=== PATIENT | female | born 1955 | race Caucasian/White ===

== ENCOUNTER 2020-05-13 07:25 | Outpatient (REF) | payer OTHER, SELFPAY ==
--- NOTE | 2020-05-13 07:29 | MM_ITS ---
EXAMINATION: MM SCREENING DIGITAL BREAST TOMOSYNTHESIS, BILATERAL CLINICAL INFORMATION: Screening. Asymptomatic. The lifetime risk of breast cancer based on the Tyrer-Cuzick Model is 25%. Additional annual screening with breast MRI may be of benefit in women with a score of 20% or greater. COMPARISON: Mammography: May 02, 2018 and studies dating back to April 16, 2014 TECHNIQUE: Digital breast tomosynthesis is performed in both the craniocaudal and mediolateral oblique views along with computer-aided detection (CAD). Synthesized 2D images are generated from the tomosynthesis. FINDINGS: The breasts are extremely dense, which lowers the sensitivity of mammography (ACR BI-RADS breast composition Category d). There are no significant masses, abnormal calcifications, or other abnormalities. MM/MM tomosynthesis screening BI IMPRESSION: There are no significant changes from prior study. ASSESSMENT: BI-RADS 1: Negative RECOMMENDATION: Routine annual mammography screening. This patient's information was entered into a reminder system with a target due date for their next mammogram.
== END 2020-05-13 07:26 | disposition home or self-care (01) ==
LOC: HO.MAMMO 07:25
PROVIDERS: PCP Internal Medicine; Visit Provider Internal Medicine
DX: Z12.31 Encounter for screening mammogram for malignant neoplasm of breast (principal)
CPT/HCPCS: 77063; 77067

== ENCOUNTER 2020-07-08 09:50 | Outpatient (REF) | payer OTHER, SELFPAY ==
[2020-07-08 11:19] LABS: Hematocrit 44.6 % (37-47); Hemoglobin 14.6 g/dl (12.0-16.0); Mean Corpuscular HGB Conc 32.7 g/dl (31.0-35.0); Mean Corpuscular Hemoglobin 29.6 pg (27.0-33.0); Mean Corpuscular Volume 90.5 fL (80-98); Mean Platelet Volume 11.1 fL (9.4-12.3); Platelet Count 231 X10*3/uL (160-400); Red Blood Count 4.93 X10*6/uL (4.20-5.50); Red Cell Distribution Width 11.9 % (11.0-16.0); White Blood Count 5.1 X10*3/uL (4.8-10.8)
[2020-07-08 11:38] LABS: Glucose Urine UA NEG (NEG); Leukocyte Esterase Urine NEG (NEG); Nitrite Urine NEG (NEG); Specific Gravity - Urine 1.025 (1.005-1.025); Urine Blood NEG (NEG); Urine Ketones NEG (NEG); Urine Protein NEG (NEG-TRACE)
[2020-07-08 11:41] LABS: Appearance Urine CLEAR; Color Urine YELLOW
[2020-07-08 11:52] LABS: RBC Urine 0 /HPF (0); WBC Urine 0 /HPF (0-4)
[2020-07-08 11:54] LABS: Alanine Aminotransferase 11 U/L (0-31); Albumin Level 4.6 g/dL (3.5-5.0); Alkaline Phosphatase 76 U/L (39-117); Anion Gap 14 (12-20); Aspartate Amino Transferase 20 U/L (5-31); Bilirubin Total 0.6 mg/dL (0.0-1.0); Blood Urea Nitrogen 22 mg/dL (9-16); Calcium 9.2 mg/dL (8.4-10.2); Carbon Dioxide 28 mmol/L (22-29); Chloride 107 mmol/L (96-108); Cholesterol 226 mg/dL; Estimated Glomerular Filt Rate > 60; Glucose Fasting 84 mg/dL (60-99); HDL Cholesterol 63 mg/dL; LDL Cholesterol Calculated 146 mg/dl; Potassium 3.9 mmol/L (3.3-5.1); Sodium 145 mmol/L (135-145); Triglycerides 88 mg/dL
[2020-07-08 11:55] LABS: TSH reflex Free T4 0.78 uIU/mL (0.32-4.0)
== END 2020-07-08 09:51 | disposition home or self-care (01) ==
LOC: HO.HMGCLDS 09:50
PROVIDERS: PCP Internal Medicine; Visit Provider Internal Medicine
DX: Z00.00 Encounter for general adult medical examination without abnormal findings (principal); E78.5 Hyperlipidemia, unspecified
CPT/HCPCS: 36415; 80053; 80061; 81001; 84443; 85027

== ENCOUNTER → 2020-12-22 07:45 | Outpatient (BNVA) | payer OTHER, SELFPAY | PROVIDERS: PCP Internal Medicine; Visit Provider Internal Medicine Gastroenterology ==

== ENCOUNTER 2020-12-30 11:52 | Outpatient (REF) | payer OTHER, SELFPAY | END 2020-12-30 11:53 | disposition home or self-care (01) | LOC: HO.LNP 11:52 | PROVIDERS: Visit Provider Hospitalist | DX: R30.0 Dysuria (principal) | CPT/HCPCS: 87086; 87088; 87186 ==

== ENCOUNTER 2021-01-31 10:29 | Day surgery (SDC) | payer OTHER, SELFPAY ==
[2021-01-25 15:32] VITALS: BMI 20.3
--- NOTE | 2021-01-30 11:53 | P.CONAN_ITS ---
Documented by User: Edith Kolb NP 01/30/21 11:53 HPI - Anesthesia Eval Consult details Narrative: 65yo F for Colonoscopy PMFSH Active Problems Active Problems: All Active Problems (Updated 01/25/21 @ 15:35 by Mindy Lovell RN) Annual physical exam (Acute) Dysuria (Acute) Hyperlipidemia (Acute) Past Medical History Medical History COVID-19 vaccine series completed Hyperlipidemia Osteoporosis PONV (postoperative nausea and vomiting) Family History Family History Father No problems noted. Mother No problems noted. Surgical History Surgical History H/O breast surgery H/O colonoscopy H/O: hysterectomy Social History Social History Are you a primary emergency care tech to a significant other at home: No Do you presently have visiting nurse or other home services: No Alcohol intake: never Patient Tobacco Use Status: Never used Tobacco Use of substances other than those prescribed or required for medical reasons: No Have you been hit, kicked, punched, or otherwise hurt by someone within the past year? If so, by whom?: No Are you DNR?: No Advance Directives: No Advance Directives Information Provided: No Advance Directives on File: No Recently lost weight without trying: No Eating poorly because of decreased appetite: No Nutrition Risks: No Nutritional Risk Patient : No Meds Allergies Allergy/AdvReac Type Severity Reaction Status Date / Time banana Allergy Mild mild Verified 01/25/21 15:22 coconut Allergy tongue Verified 01/25/21 15:31 tingling morphine, nsaids Allergy Unknown Nausea and Uncoded 01/25/21 15:31 Vomiting sensitive to pain meds Allergy Unknown Nausea and Uncoded 01/25/21 15:31 Vomiting NARCOTICS AdvReac Intermediate SEVERE N/V Uncoded 01/25/21 15:22 FOR DAYS Home Medications Medication Instructions Recorded Confirmed Last Taken Type multivitamin 1 tab PO DAILY 01/25/21 01/25/21 Unknown History omega 8-fli-dsk-fish oil 1,000 mg 1 cap PO DAILY 10/01/31/21 01/17/21 History (120 mg-180 mg) capsule (Fish Oil) Exam Exam Date and Time: January 30, 2021 1153 Height,Weight and Vital Signs: Height 5 ft 8 in Weight 60.781 kg Assessment and Plan Assessment Anesthesia Assessment: Chart Reviewed Documented by User: Mariana Oshea MD 01/31/21 11:38 PMFSH Past Medical History Medical History COVID-19 vaccine series completed Hyperlipidemia Osteoporosis PONV (postoperative nausea and vomiting) Family History Family History Father No problems noted. Mother No problems noted. Surgical History Surgical History H/O breast surgery H/O colonoscopy H/O: hysterectomy Social History Social History Are you a primary emergency care tech to a significant other at home: No Do you presently have visiting nurse or other home services: No Alcohol intake: never Patient Tobacco Use Status: Never used Tobacco Use of substances other than those prescribed or required for medical reasons: No Have you been hit, kicked, punched, or otherwise hurt by someone within the past year? If so, by whom?: No Are you DNR?: No Advance Directives: No Advance Directives Information Provided: No Advance Directives on File: No Recently lost weight without trying: No Eating poorly because of decreased appetite: No Nutrition Risks: No Nutritional Risk Patient : No Meds Allergies Allergy/AdvReac Type Severity Reaction Status Date / Time banana Allergy Mild mild Verified 01/25/21 15:22 coconut Allergy tongue Verified 01/25/21 15:31 tingling morphine, nsaids Allergy Unknown Nausea and Uncoded 01/25/21 15:31 Vomiting sensitive to pain meds Allergy Unknown Nausea and Uncoded 01/25/21 15:31 Vomiting NARCOTICS AdvReac Intermediate SEVERE N/V Uncoded 01/25/21 15:22 FOR DAYS Home Medications Medication Instructions Recorded Confirmed Last Taken Type multivitamin 1 tab PO DAILY 01/25/21 01/25/21 Unknown History omega 5-aon-gxl-fish oil 1,000 mg 1 cap PO DAILY 01/25/21 01/31/21 01/17/21 History (120 mg-180 mg) capsule (Fish Oil) Exam Airway Mallampati Class: I TM Dist: >3cm Neck ROM: Full
--- NOTE | 2021-01-31 10:52 | MHC.SHP ---
Pre-Procedural Eval Section A Date of Service: 01/31/21 The patient is an INPATIENT: No The History & Physical has been completed within 30 days and I have reviewed it.: No Section B Chief Complaint: Screening Details of Present Illness: screening Relevant Family History (Specify if Yes): No Relevant Social History: None Present Medications: see Short Stay Collaborative assessment Medical History: Significant History (Annual physical exam Hyperlipidemia Osteoporosis) History of Previous Operations: Relevant previous surgery/procedure and date(s) (H/O breast surgery H/O colonoscopy H/O: hysterectomy) Allergies: Allergies Allergy/AdvReac Type Severity Reaction Status Date / Time banana Allergy Mild mild Verified 01/25/21 15:22 coconut Allergy tongue Verified 01/25/21 15:31 tingling morphine, nsaids Allergy Unknown Nausea and Uncoded 01/25/21 15:31 Vomiting sensitive to pain meds Allergy Unknown Nausea and Uncoded 01/25/21 15:31 Vomiting NARCOTICS AdvReac Intermediate SEVERE N/V Uncoded 01/25/21 15:22 FOR DAYS Review of Systems Sugical H&P ROS: Negative: Constitution, Cardiovascular, Respiratory and Gastrointestinal Exam Surgical H&P Exam: Normal: Heart, Normal: Lungs, Normal: Extremities and Normal: Abdomen Plan Diagnosis/Plan: Unchanged I have reviewed the history and physical and performed a pertinent physical examination on my patient. No changes have occurred unless specified.
[2021-01-31 11:04] VITALS: BP 133/92; PULSE 96; RESP 16; TEMP 36.4; O2SAT 97
[2021-01-31] MEDS: Lactated Ringers 1,000 ML 100 ML IVCONT (11:08)
--- NOTE | 2021-01-31 12:32 | PM.OP ---
Brief Operative Note Date of Service: 01/31/21 Pre-op diagnosis: Colon cancer screening Post-op diagnosis: other (Colon polyps, diverticulosis, hemorrhoids) Procedure: COLONOSCOPY TILL CECUM WITH BIOPSIES AND SNARE POLYPECTOMY Consent: Indications for the procedure and potential complications of bleeding, perforation, reaction to medications and missed diagnosis were discussed with the patient and informed consent was obtained. Instrument: Olympus PCF H 190 L variable stiffness pediatric colonoscope Monitoring: Vital signs and clinical assessment, intermittent blood pressure monitoring, continuous EKG monitoring, Pulse oximetry and Carbon Dioxide monitoring were done throughout the procedure. Colon withdrawl time was 23 minutes. Procedure: The patient was placed in the left lateral decubitis position and pre-procedure medications were administered. After a digital rectal examination of the ano-rectum, the video colonoscope was inserted into the rectum and advanced through the colon to the cecum. The colonoscope was slowly withdrawn in a retrograde panoramic fashion and the colon mucosa was carefully examined including a retroflexed view of the rectum. Findings and interventions are described below. Procedure Difficulty: Colon was tortuous and there were sharp turns in the sigmoid colon and hepatic flexures which were navigated with difficulty. Minimal air insuufflation was used during intubation. Findings: Terminal Ileum: Not evaluated Cecum: Normal Ascending Colon: A 15 mm sessile polyp removed with a hot snare. Minor bleeding noted polypectomy site which was treated with cautery using the snare tip. Transverse Colon: An 8-10 mm sessile polyp - removed with a hot snare - no specimen sent since tissue was charred. Descending Colon: Moderate diverticulosis Sigmoid Colon: An 8-10 mm diminutive appearing polyp which was biopsied. Severe diverticulosis with luminal narrowing Rectum: Normal Ano-rectum: Small internal hemorrhoids Colon preparation: Good Impression and Post Procedure Diagnosis: Colonoscopy Findings: Three medium sized polyps removed Moderate diverticulosis seen in the left colon Small hemorrhoids on retroflexed exam. Plan: Await pathology results Patient has an appointment on 02/13/21 in the [facility] with Rosina Neri M.D.. Repeat Colonoscopy interval based on path results - in 3 years if polyps are adenomatous and 10 years if polyps are hyperplastic. Above findings were reviewed with the patient and colon polyps and diverticulosis handouts were given in the discharge area Surgeon: Rosina Neri MD Anesthesia: MAC (Anel Orellana CRNA) Was an Commercial Light Fixture Assembler used for this Procedure?: Yes Commercial Light Fixture Assembler: Lizz Parker Estimated blood loss (mL): 0 Pathology: other (A. ASCENDING COLON POLYP B. SIGMOID COLON POLYP BX) Condition: stable Disposition: PACU
[2021-01-31 12:35] VITALS: BP 118/71; PULSE 80; RESP 16; TEMP 36.1; O2SAT 98
--- NOTE | 2021-01-31 12:38 | W.PM.OPN ---
Operative Note Operative Note Date of Service: 01/31/21 Narrative: Pre-op diagnosis:?Colon cancer screening Post-op diagnosis:?other (Colon polyps, diverticulosis, hemorrhoids) Procedure:? COLONOSCOPY TILL CECUM WITH BIOPSIES AND SNARE POLYPECTOMY Consent: Indications for the procedure and potential complications of bleeding, perforation, reaction to medications and missed diagnosis were discussed with the patient and informed consent was obtained. Instrument: Olympus PCF H 190 L variable stiffness pediatric colonoscope Monitoring: Vital signs and clinical assessment, intermittent blood pressure monitoring, continuous EKG monitoring, Pulse oximetry and Carbon Dioxide monitoring were done throughout the procedure. Colon withdrawl time was 23 minutes. Procedure: The patient was placed in the left lateral decubitis position and pre-procedure medications were administered. After a digital rectal examination of the ano-rectum, the video colonoscope was inserted into the rectum and advanced through the colon to the cecum. The colonoscope was slowly withdrawn in a retrograde panoramic fashion and the colon mucosa was carefully examined including a retroflexed view of the rectum. Findings and interventions are described below. Procedure Difficulty:? Colon was tortuous and there were sharp turns in the sigmoid colon and hepatic flexures which were navigated with difficulty.? Minimal air insuufflation was used during intubation. Findings: Terminal Ileum: Not evaluated Cecum:? Normal Ascending Colon:? A 15 mm sessile polyp removed with a hot snare.? Minor bleeding noted polypectomy site which was treated with cautery using the snare tip. Transverse Colon:? An 8-10 mm sessile polyp - removed with a hot snare - no specimen sent since tissue was charred. Descending Colon:? Moderate diverticulosis Sigmoid Colon:? An 8-10 mm diminutive appearing polyp which was biopsied. ? Severe diverticulosis with luminal narrowing Rectum:? Normal Ano-rectum:? Small internal hemorrhoids Colon preparation:? Good? Impression and Post Procedure Diagnosis: Colonoscopy Findings: Three medium sized polyps removed Moderate diverticulosis seen in the left colon Small hemorrhoids on retroflexed exam. Plan: Await pathology results Patient has an appointment on 02/13/21 in the GI Clinic with? Rosina Neri M.D.. Repeat Colonoscopy interval based on path results - in 3 years if polyps are adenomatous and 10 years if polyps are hyperplastic. Above findings were reviewed with the patient and colon polyps and diverticulosis handouts were given in the discharge area Surgeon:?Rosina Neri MD Anesthesia:?MAC (Anel Orellana CRNA) Was an Guide Escort used for this Procedure?:?Yes Guide Escort:?Lizz Parker Estimated blood loss (mL):?0 Pathology:?other (A. ASCENDING COLON POLYP? B. SIGMOID COLON POLYP BX) Condition:?stable Disposition:?PACU
[2021-01-31 12:50] VITALS: BP 109/71; PULSE 79; RESP 16; TEMP 36.1; O2SAT 96
== END 2021-01-31 13:15 | disposition home or self-care (01) ==
PROVIDERS: PCP Internal Medicine; Visit Provider Internal Medicine Gastroenterology
PROC: 0DJD8ZZ Inspection of Lower Intestinal Tract, Via Natural or Artificial Opening Endoscopic (ICD-10-PCS; CPT 45378; principal; 2021-01-31 11:30)
DX: Z12.11 Encounter for screening for malignant neoplasm of colon (principal); K63.5 Polyp of colon; K57.30 Diverticulosis of large intestine without perforation or abscess without bleeding; K64.8 Other hemorrhoids; M81.0 Age-related osteoporosis without current pathological fracture; E78.5 Hyperlipidemia, unspecified; Z88.8 Allergy status to other drugs, medicaments and biological substances
CPT/HCPCS: 45385; 45380; 88305

== ENCOUNTER 2021-05-08 06:42 | Day surgery (SDC) | payer OTHER, SELFPAY ==
[2021-04-17 09:27] VITALS: BMI 19.8
--- NOTE | 2021-05-04 08:27 | MHC.SHP ---
Pre-Procedural Eval Section A Date of Service: 05/04/21 The patient is an INPATIENT: No Changes since office visit: No Cold of Flu in the past 2 weeks, No New Medical Problems, No Changes in Medication and No Patient answered all questions The History & Physical has been completed within 30 days and I have reviewed it.: Yes Section B Chief Complaint: cataract Allergies: Allergies Allergy/AdvReac Type Severity Reaction Status Date / Time banana Allergy Intermediate tongue Verified 04/17/21 09:23 tingling coconut Allergy Intermediate tongue Verified 04/17/21 09:23 tingling morphine AdvReac Intermediate Nausea and Verified 04/17/21 09:23 Vomiting NSAIDS (Non-Steroidal AdvReac Intermediate Nausea and Verified 04/17/21 09:23 Anti-Inflamma Vomiting NARCOTICS AdvReac Intermediate SEVERE N/V Uncoded 04/12/21 12:08 FOR DAYS sensitive to pain meds AdvReac Intermediate Nausea and Uncoded 04/17/21 09:23 Vomiting Plan Diagnosis/Plan: Unchanged I have reviewed the history and physical and performed a pertinent physical examination on my patient. No changes have occurred unless specified.
--- NOTE | 2021-05-05 08:52 | HO.ANESPROP2 ---
Documented by User: Edith Kolb NP 05/05/21 08:53 HPI - Anesthesia Eval Consult details Narrative: 65yo F for Left Cataract Extraction IOL Insertion No prev cataract on record PCP cleared PMFSH Active Problems Active Problems: All Active Problems (Updated 04/12/21 @ 13:14 by Xochitl Oliva MD) Cataract (Acute) Annual physical exam (Acute) Dysuria (Acute) Hyperlipidemia (Acute) Past Medical History Medical History (Updated 04/12/21 @ 13:14 by Xochitl Oliva MD) Cataract COVID-19 vaccine series completed Hyperlipidemia Osteoporosis PONV (postoperative nausea and vomiting) Family History Family History Father No problems noted. Mother No problems noted. Surgical History Surgical History H/O breast surgery H/O colonoscopy H/O: hysterectomy Social History Social History Housing: House Are you a primary insurance healthcare representative to a significant other at home: No Do you presently have visiting nurse or other home services: No Alcohol intake: never Patient Tobacco Use Status: Never used Tobacco e-Cigarette/Vaping Use: Never Used Are you DNR?: No Advance Directives: No Advance Directives Information Provided: Yes Advance Directives on File: No Current occupational status: employed Meds Allergies Allergy/AdvReac Type Severity Reaction Status Date / Time banana Allergy Intermediate tongue Verified 04/17/21 09:23 tingling coconut Allergy Intermediate tongue Verified 04/17/21 09:23 tingling morphine AdvReac Intermediate Nausea and Verified 04/17/21 09:23 Vomiting NSAIDS (Non-Steroidal AdvReac Intermediate Nausea and Verified 04/17/21 09:23 Anti-Inflamma Vomiting NARCOTICS AdvReac Intermediate SEVERE N/V Uncoded 04/12/21 12:08 FOR DAYS sensitive to pain meds AdvReac Intermediate Nausea and Uncoded 04/17/21 09:23 Vomiting Home Medications Medication Instructions Recorded Confirmed Last Taken Type multivitamin 1 tab PO DAILY 01/25/21 04/17/21 Unknown History omega 3-qyo-xmw-fish oil 1,000 mg 1 cap PO DAILY 01/25/21 04/17/2121 History (120 mg-180 mg) capsule (Fish Oil) calcium carbonate 600 mg calcium 600 mg PO DAILY 04/17/21 04/17/21 Unknown History (1,500 mg) tablet (Calcium) Exam Exam Date and Time: May 05, 2021 0852 Height,Weight and Vital Signs: Height 5 ft 8 in Weight 58.967 kg Assessment and Plan Assessment Anesthesia Assessment: Chart Reviewed Documented by User: Javier Solomon MD 05/08/21 07:34 [facility] Past Medical History Medical History (Updated 04/12/21 @ 13:14 by Xochitl Oliva MD) Cataract COVID-19 vaccine series completed Hyperlipidemia Osteoporosis PONV (postoperative nausea and vomiting) Family History Family History Father No problems noted. Mother No problems noted. Family history of problems with anesthesia: No Surgical History Surgical History H/O breast surgery H/O colonoscopy H/O: hysterectomy History of Problems with Anesthesia: No Social History Social History Housing: House Are you a primary insurance healthcare representative to a significant other at home: No Do you presently have visiting nurse or other home services: No Alcohol intake: never Patient Tobacco Use Status: Never used Tobacco e-Cigarette/Vaping Use: Never Used Are you DNR?: No Advance Directives: No Advance Directives Information Provided: Yes Advance Directives on File: No Current occupational status: employed Meds Allergies Allergy/AdvReac Type Severity Reaction Status Date / Time banana Allergy Intermediate tongue Verified 04/17/21 09:23 tingling coconut Allergy Intermediate tongue Verified 04/17/21 09:23 tingling morphine AdvReac Intermediate Nausea and Verified 04/17/21 09:23 Vomiting NSAIDS (Non-Steroidal AdvReac Intermediate Nausea and Verified 04/17/21 09:23 Anti-Inflamma Vomiting NARCOTICS AdvReac Intermediate SEVERE N/V Uncoded 04/12/21 12:08 FOR DAYS sensitive to pain meds AdvReac Intermediate Nausea and Uncoded 04/17/21 09:23 Vomiting Home Medications Medication Instructions Recorded Confirmed Last Taken Type multivitamin 1 tab PO DAILY 01/25/21 04/17/21 Unknown History omega 7-hgt-nii-fish oil 1,000 mg 1 cap PO DAILY 01/25/21 04/17/21 01/17/21 History (120 mg-180 mg) capsule (Fish Oil) calcium carbonate 600 mg calcium 600 mg PO DAILY 04/17/21 04/17/21 Unknown History (1,500 mg) tablet (Calcium) Exam Airway Mallampati Class: II TM Dist: >3cm Neck ROM: Full Loose/Missing/Broken Teeth: No Heart: [id number] Lungs: cta b/l Assessment and Plan Assessment Anesthesia Assessment: Anesthesia Plan Discussed Final Anesthetic Review Family History of Problems with Anesthesia: No History of Problems with Anesthesia: No NPO: Yes ASA Class: II Final Preanesthetic Review: No Changes in Pt Med Stat, Meds/Allgs Chart Reviewed, Consent Obtained/Reviewed and Anes Risks/Benef Reviewed Patient Risk: Low Procedure Risk: Low Assessment/Block/Sedation in SS: Assess/Block/Sedation-SS Anesthetic Plan Anesthetic Plan: MAC: and Agree w/ Assess. and Plan Disposition: Standard PACU
[2021-05-08 06:59] VITALS: BP 128/75; PULSE 89; RESP 16; TEMP 37; O2SAT 97
[2021-05-08] MEDS: Tetracaine HCl/PF 0.5% Oph Sol 4 ML DROPS 1 DROP EYE-LEFT (07:25)
[2021-05-08] MEDS: Tropicamide 1 % Ophth Sol 3 ML BTL 1 DROP EYE-LEFT ×3 (07:26→07:32)
[2021-05-08] MEDS: Phenylephrine HCL 2.5% Oph SoL 2 ML BOTTLE 1 DROP EYE-LEFT ×3 (07:28→07:34)
--- NOTE | 2021-05-08 08:19 | HO.PNOPHT ---
Ophthalmology Procedure Procedure Date of Service: 05/08/21 Ophthalmology Viscoelastic: Ivy Manning Dual Pack Pro Ophthalmology Lenses: NATACHA [id number] (14) Procedure Notes: PREOPERATIVE DIAGNOSIS: Decreased visual acuity left eye secondary to cataract POSTOPERATIVE DIAGNOSIS: Same PROCEDURE: Left cataract extraction with intraocular lens insertion SURGEON: Manas Cardona M.D. ANESTHESIA: Topical/MAC ESTIMATED BLOOD LOSS: None COMPLICATIONS: None After obtaining informed consent, the patient was brought to the operation room suite and placed in the supine position. After adequate sedation per anesthesia, topical drops of Tetracaine were given to the left eye. The eye was then prepped and draped in the usual sterile fashion. The operating room microscope was then positioned over the operative eye and a lid speculum placed. A paracentesis was created. Viscoelastic was then instilled into the anterior chamber. A three plane incision was then created temporally, utilizing a 2.85 mm keratome. Capsulotomy forceps were then utilized to create a circular tear capsulotomy. Hydrodissection and hydrodelineation were carried out until adequate mobilization of the nucleus occurred. Phacoemulsification was then utilized to remove the dense central nucleus followed by removal of the cortical material utilizing the automated aspiration irrigation unit. Viscoat elastic was instilled into the posterior capsular bag followed by placement of a posterior chamber intraocular lens but the lens did not center. A posterior rent was identified so the PCIOL was repostioned into the sulcus with haptic capture. The residual Viscoat elastic was then removed utilizing the automated IA machine. The wound was check and found to be watertight. The patient tolerated the procedure well and the lid speculum was removed. Intracameral injection of Vigamox 0.1 mL followed by a subtenon injection of Kenalog-40 0.2 mL were administered. The patient will be seen in the a.m.
[2021-05-08 08:47] VITALS: BP 110/72; PULSE 72; RESP 16; TEMP 36.5; O2SAT 99
== END 2021-05-08 08:57 | disposition home or self-care (01) ==
PROVIDERS: PCP Internal Medicine; Visit Provider Ophthalmology
PROC: (CPT 66985; principal; 2021-05-08 09:20)
DX: H25.12 Age-related nuclear cataract, left eye (principal); H52.4 Presbyopia; Z83.511 Family history of glaucoma; H52.203 Unspecified astigmatism, bilateral; E78.5 Hyperlipidemia, unspecified; M81.0 Age-related osteoporosis without current pathological fracture; R30.0 Dysuria; Z88.8 Allergy status to other drugs, medicaments and biological substances
CPT/HCPCS: 66984; J2250; J2405; J3300; V2632

== ENCOUNTER 2021-05-15 06:27 | Day surgery (SDC) | payer OTHER, SELFPAY ==
[2021-04-17 09:15] VITALS: BMI 19.8
[2021-04-17 09:25] VITALS: BMI 19.8
--- NOTE | 2021-04-20 09:31 | MHC.SHP ---
Pre-Procedural Eval Section A Date of Service: 04/20/21 The patient is an INPATIENT: No Changes since office visit: No Cold of Flu in the past 2 weeks, No New Medical Problems, No Changes in Medication and No Patient answered all questions The History & Physical has been completed within 30 days and I have reviewed it.: Yes Section B Chief Complaint: cataract Allergies: Allergies Allergy/AdvReac Type Severity Reaction Status Date / Time banana Allergy Intermediate tongue Verified 04/17/21 09:23 tingling coconut Allergy Intermediate tongue Verified 04/17/21 09:23 tingling morphine AdvReac Intermediate Nausea and Verified 04/17/21 09:23 Vomiting NSAIDS (Non-Steroidal AdvReac Intermediate Nausea and Verified 04/17/21 09:23 Anti-Inflamma Vomiting NARCOTICS AdvReac Intermediate SEVERE N/V Uncoded 04/12/21 12:08 FOR DAYS sensitive to pain meds AdvReac Intermediate Nausea and Uncoded 04/17/21 09:23 Vomiting Plan Diagnosis/Plan: Unchanged I have reviewed the history and physical and performed a pertinent physical examination on my patient. No changes have occurred unless specified.
--- NOTE | 2021-05-11 08:38 | MHC.SHP ---
Pre-Procedural Eval Section A Date of Service: 05/11/21 The patient is an INPATIENT: No Changes since office visit: No Cold of Flu in the past 2 weeks, No New Medical Problems, No Changes in Medication and No Patient answered all questions The History & Physical has been completed within 30 days and I have reviewed it.: Yes Section B Chief Complaint: cataract Allergies: Allergies Allergy/AdvReac Type Severity Reaction Status Date / Time banana Allergy Intermediate tongue Verified 04/17/21 09:23 tingling coconut Allergy Intermediate tongue Verified 04/17/21 09:23 tingling morphine AdvReac Intermediate Nausea and Verified 04/17/21 09:23 Vomiting NSAIDS (Non-Steroidal AdvReac Intermediate Nausea and Verified 04/17/21 09:23 Anti-Inflamma Vomiting NARCOTICS AdvReac Intermediate SEVERE N/V Uncoded 04/12/21 12:08 FOR DAYS sensitive to pain meds AdvReac Intermediate Nausea and Uncoded 04/17/21 09:23 Vomiting Plan Diagnosis/Plan: Unchanged I have reviewed the history and physical and performed a pertinent physical examination on my patient. No changes have occurred unless specified.
--- NOTE | 2021-05-11 13:00 | P.CONAN_ITS ---
Documented by User: Edith Kolb NP 05/11/21 13:01 HPI - Anesthesia Eval Consult details Narrative: 65yo F for Right Cataract Extraction IOL Insertion PCP cleared Left eye 05/08/21 with MAC: Midaz 2, Zofran 4 *Very sensitive to opioids* PMFSH Active Problems Active Problems: All Active Problems (Updated 04/12/21 @ 13:14 by Xochitl Oliva MD) Cataract (Acute) Annual physical exam (Acute) Dysuria (Acute) Hyperlipidemia (Acute) Past Medical History Medical History (Updated 04/12/21 @ 13:14 by Xochitl Oliva MD) Cataract COVID-19 vaccine series completed Hyperlipidemia Osteoporosis PONV (postoperative nausea and vomiting) Family History Family History Father No problems noted. Mother No problems noted. Family history of problems with anesthesia: No Surgical History Surgical History H/O breast surgery H/O colonoscopy H/O: hysterectomy History of Problems with Anesthesia: No Social History Social History Housing: House Are you a primary career services representative to a significant other at home: No Do you presently have visiting nurse or other home services: No Alcohol intake: never Patient Tobacco Use Status: Never used Tobacco e-Cigarette/Vaping Use: Never Used Use of substances other than those prescribed or required for medical reasons: No Are you DNR?: No Advance Directives: No Advance Directives Information Provided: Yes Advance Directives on File: No Current occupational status: employed Meds Allergies Allergy/AdvReac Type Severity Reaction Status Date / Time banana Allergy Intermediate tongue Verified 05/15/21 06:40 tingling coconut Allergy Intermediate tongue Verified 05/15/21 06:40 tingling morphine AdvReac Intermediate Nausea and Verified 05/15/21 06:40 Vomiting NSAIDS AdvReac Intermediate Nausea and Verified 05/15/21 06:40 (Non-Steroidal Anti-Inflamma Vomiting NARCOTICS AdvReac Intermediate SEVERE N/V Uncoded 04/12/21 12:08 FOR DAYS sensitive to pain AdvReac Intermediate Nausea and Uncoded 04/17/21 09:23 meds Vomiting Home Medications Medication Instructions Recorded Confirmed Last Taken Type multivitamin 1 tab PO DAILY 01/25/21 04/17/21 Unknown History omega 1 cap PO DAILY 01/25/21 04/17/21 01/17/21 History 5-yks-iyr-fish oil 1,000 mg (120 mg-180 mg) capsule (Fish Oil) calcium carbonate 600 mg PO DAILY 04/17/21 04/17/21 Unknown History 600 mg calcium (1,500 mg) tablet (Calcium) Exam Exam Date and Time: May 11, 2021 1300 Height,Weight and Vital Signs: Height 5 ft 8 in Weight 58.967 kg Assessment and Plan Assessment Anesthesia Assessment: Chart Reviewed Final Anesthetic Review Family History of Problems with Anesthesia: No History of Problems with Anesthesia: No Documented by User: Mariana Oshea MD 05/15/21 08:45 [facility] Past Medical History Medical History (Updated 04/12/21 @ 13:14 by Xochitl Oliva MD) Cataract COVID-19 vaccine series completed Hyperlipidemia Osteoporosis PONV (postoperative nausea and vomiting) Family History Family History Father No problems noted. Mother No problems noted. Surgical History Surgical History H/O breast surgery H/O colonoscopy H/O: hysterectomy Social History Social History Housing: House Are you a primary career services representative to a significant other at home: No Do you presently have visiting nurse or other home services: No Alcohol intake: never Patient Tobacco Use Status: Never used Tobacco e-Cigarette/Vaping Use: Never Used Use of substances other than those prescribed or required for medical reasons: No Are you DNR?: No Advance Directives: No Advance Directives Information Provided: Yes Advance Directives on File: No Current occupational status: employed Meds Allergies Allergy/AdvReac Type Severity Reaction Status Date / Time banana Allergy Intermediate tongue Verified 05/15/21 06:40 tingling coconut Allergy Intermediate tongue Verified 05/15/21 06:40 tingling morphine AdvReac Intermediate Nausea and Verified 05/15/21 06:40 Vomiting NSAIDS AdvReac Intermediate Nausea and Verified 05/15/21 06:40 (Non-Steroidal Anti-Inflamma Vomiting NARCOTICS AdvReac Intermediate SEVERE N/V Uncoded 04/12/21 12:08 FOR DAYS sensitive to pain AdvReac Intermediate Nausea and Uncoded 04/17/21 09:23 meds Vomiting Home Medications Medication Instructions Recorded Confirmed Last Taken Type multivitamin 1 tab PO DAILY 01/25/21 04/17/21 Unknown History omega 1 cap PO DAILY 01/25/21 04/17/21 01/17/21 History 8-uaw-ppw-fish oil 1,000 mg (120 mg-180 mg) capsule (Fish Oil) calcium carbonate 600 mg PO DAILY 04/17/21 04/17/21 Unknown History 600 mg calcium (1,500 mg) tablet (Calcium) Exam Airway Mallampati Class: II TM Dist: >3cm Neck ROM: Full Assessment and Plan Assessment Anesthesia Assessment: Anesthesia Plan Discussed Final Anesthetic Review NPO: Yes ASA Class: II Final Preanesthetic Review: No Changes in Pt Med Stat, Meds/Allgs Chart Reviewed, Consent Obtained/Reviewed and Anes Risks/Benef Reviewed Patient Risk: Low Procedure Risk: Low Anesthetic Plan Anesthetic Plan: MAC: Disposition: Standard PACU
--- NOTE | 2021-05-12 11:04 | MHC.SHP ---
Pre-Procedural Eval Section A Date of Service: 05/24/21 Section B Chief Complaint: cataract Details of Present Illness: difficulty driving at night d/t vision changes Relevant Family History (Specify if Yes): No Relevant Social History: None Present Medications: see Short Stay Collaborative assessment Medical History: Significant History (See Anesthesia Preop Consult) History of Previous Operations: Relevant previous surgery/procedure and date(s) (Left eye 05/08/21 with MAC: Midaz 2, Zofran 4 *Very sensitive to opioids*) Allergies: Allergies Allergy/AdvReac Type Severity Reaction Status Date / Time banana Allergy Intermediate tongue Verified 04/17/21 09:23 tingling coconut Allergy Intermediate tongue Verified 04/17/21 09:23 tingling morphine AdvReac Intermediate Nausea and Verified 04/17/21 09:23 Vomiting NSAIDS (Non-Steroidal AdvReac Intermediate Nausea and Verified 04/17/21 09:23 Anti-Inflamma Vomiting NARCOTICS AdvReac Intermediate SEVERE N/V Uncoded 04/12/21 12:08 FOR DAYS sensitive to pain meds AdvReac Intermediate Nausea and Uncoded 04/17/21 09:23 Vomiting Plan I have reviewed the history and physical and performed a pertinent physical examination on my patient. No changes have occurred unless specified.
[2021-05-15 06:42] VITALS: BP 114/78; PULSE 81; RESP 16; TEMP 37; O2SAT 97
[2021-05-15] MEDS: Lactated Ringers 500 ML 50 ML IV (06:54)
[2021-05-15] MEDS: Phenylephrine HCL 2.5% Oph SoL 2 ML BOTTLE 1 DROP EYE-RIGHT ×3 (06:54→06:55)
[2021-05-15] MEDS: Tetracaine HCl/PF 0.5% Oph Sol 4 ML DROPS 1 DROP EYE-RIGHT (06:54)
[2021-05-15] MEDS: Tropicamide 1 % Ophth Sol 3 ML BTL 1 DROP EYE-RIGHT ×3 (06:54→06:55)
--- NOTE | 2021-05-15 08:56 | HO.PNOPHT ---
Ophthalmology Procedure Procedure Date of Service: 05/15/21 Ophthalmology Viscoelastic: Healkayden Pinat Dual Pack Pro Ophthalmology Lenses: TECNIS [id number] (14.5) Procedure Notes: PREOPERATIVE DIAGNOSIS: Decreased visual acuity right eye secondary to cataract POSTOPERATIVE DIAGNOSIS: Same PROCEDURE: Right cataract extraction with intraocular lens insertion SURGEON: Manas Cardona M.D. ANESTHESIA: Topical/MAC ESTIMATED BLOOD LOSS: None COMPLICATIONS: None After obtaining informed consent, the patient was brought to the operating room suite and placed in the supine position. After adequate sedation per anesthesia, topical drops of Tetracaine were given to the right eye. The eye was then prepped and draped in the usual sterile fashion. The operating room microscope was then positioned over the operative eye and a lid speculum placed. A paracentesis was created. Viscoelastic was then instilled into the anterior chamber. A three plane incision was then created temporally, utilizing a 2.85 mm keratome. Capsulotomy forceps were then utilized to create a circular tear capsulotomy. Hydrodissection and hydrodelineation were carried out until adequate mobilization of the nucleus occurred. Phacoemulsification was then utilized to remove the dense central nucleus followed by removal of the cortical material utilizing the automated aspiration irrigation unit. Viscoelastic was instilled into the posterior capsular bag followed by placement of a posterior chamber intraocular lens without difficulty. The residual Viscoelastic was then removed utilizing the automated IA machine. The wound was checked and found to be watertight. The patient tolerated the procedure well and the lid speculum was removed. Intracameral injection of Vigamox 0.1 mL followed by a subtenon injection of Kenalog-40 0.2 mL were administered. The patient will be seen in the a.m.
[2021-05-15 09:22] VITALS: BP 124/81; PULSE 75; RESP 16; TEMP 36.6; O2SAT 98
== END 2021-05-15 09:30 | disposition home or self-care (01) ==
PROVIDERS: PCP Internal Medicine; Visit Provider Ophthalmology
PROC: (CPT 66985; principal; 2021-05-15 09:00)
DX: H25.11 Age-related nuclear cataract, right eye (principal); Z83.511 Family history of glaucoma; H52.4 Presbyopia; H52.13 Myopia, bilateral; H52.203 Unspecified astigmatism, bilateral; M81.0 Age-related osteoporosis without current pathological fracture; E78.5 Hyperlipidemia, unspecified; Z88.8 Allergy status to other drugs, medicaments and biological substances
CPT/HCPCS: 66984; J1100; J2250; J2405; J3010; J3300; V2632

== ENCOUNTER 2021-05-24 07:17 | Outpatient (REF) | payer OTHER, SELFPAY ==
--- NOTE | ~2021-05-24 | MM_ITS ---
EXAMINATION: MM SCREENING DIGITAL BREAST TOMOSYNTHESIS, BILATERAL CLINICAL INFORMATION: Screening. Asymptomatic. Prior outside bilateral excisional biopsy early 1999, right benign, left atypia. The lifetime risk of breast cancer based on the Tyrer-Cuzick Model is 25%. COMPARISON: Mammography: 05/13/2020, 05/08/2019, 05/02/2018, 04/26/2017, outside mammography 04/27/2016 ([facility], [place]). TECHNIQUE: Digital breast tomosynthesis is performed in both the craniocaudal and mediolateral oblique views along with computer-aided detection (CAD). Synthesized 2D images are generated from the tomosynthesis. FINDINGS: The breasts are heterogeneously dense, which may obscure small masses (ACR BI-RADS breast composition Category c). There are no significant masses, abnormal calcifications, or other abnormalities. Parenchymal pattern is similar to prior studies. There is no developing density or architectural abnormality. The axilla and skin contours are unremarkable. No significant changes. MM/MM tomosynthesis screening BI IMPRESSION: No significant changes from prior exams. ASSESSMENT: BI-RADS 1: Negative RECOMMENDATION: 1. Routine annual mammography screening. 2. The lifetime risk of breast cancer based on the Tyrer-Cuzick Model is 25%. Additional annual adjunct screening with breast MRI may be of benefit in women with a risk score of 20% or greater. This patient's information was entered into a reminder system with a target due date for their next mammogram.
== END 2021-05-24 07:18 | disposition home or self-care (01) ==
LOC: HO.MAMMO 07:17
PROVIDERS: PCP Internal Medicine; Visit Provider Internal Medicine
DX: Z12.31 Encounter for screening mammogram for malignant neoplasm of breast (principal)
CPT/HCPCS: 77063; 77067

== ENCOUNTER 2021-10-10 11:57 | Outpatient (REF) | payer OTHER, SELFPAY ==
[2021-10-10 12:24] LABS: Appearance Urine HAZY; Color Urine YELLOW; Glucose Urine UA NEG (NEG); Leukocyte Esterase Urine 3+ (NEG); Nitrite Urine NEG (NEG); Specific Gravity - Urine <= 1.005 (1.005-1.025); UACC Culture Trigger YES; Urine Blood 3+ (NEG); Urine Ketones NEG (NEG); Urine Protein NEG (NEG-TRACE)
[2021-10-10 12:42] LABS: WBC Urine 30-49 /HPF (0-4)
[2021-10-10 12:43] LABS: Bacteria Urine 2+ /LPF
== END 2021-10-10 11:58 | disposition home or self-care (01) ==
LOC: HO.LNP 11:57
PROVIDERS: Visit Provider Physician Assistant
DX: N39.0 Urinary tract infection, site not specified (principal)
CPT/HCPCS: 81001; 87086; 87088; 87186

== ENCOUNTER 2021-10-27 16:34 | Outpatient (REF) | payer OTHER, SELFPAY | END 2021-10-27 16:35 | disposition home or self-care (01) | LOC: HO.LNP 16:34 | PROVIDERS: Visit Provider Nurse Practitioner Family | DX: N39.0 Urinary tract infection, site not specified (principal); R35.0 Frequency of micturition; R30.0 Dysuria | CPT/HCPCS: 87086; 87088; 87186 ==

== ENCOUNTER 2022-05-04 17:49 | Outpatient (REF) | payer MEDICARE, SELFPAY | END 2022-05-04 17:50 | disposition home or self-care (01) | LOC: HO.LNP 17:49 | PROVIDERS: Visit Provider Physician Assistant | DX: N39.0 Urinary tract infection, site not specified (principal); R35.0 Frequency of micturition; B96.20 Unspecified Escherichia coli [E. coli] as the cause of diseases classified elsewhere | CPT/HCPCS: 87086; 87088; 87186 ==

== ENCOUNTER 2022-06-01 07:17 | Outpatient (REF) | payer MEDICARE, SELFPAY ==
--- NOTE | ~2022-06-01 | MM_ITS ---
EXAMINATION: MM SCREENING DIGITAL BREAST TOMOSYNTHESIS, BILATERAL CLINICAL INFORMATION: Screening. Asymptomatic. Prior outside bilateral excisional biopsy early 1999, right benign, left atypia. The lifetime risk of breast cancer based on the Tyrer-Cuzick Model is 24%. COMPARISON: Mammography: 05/24/2021, 05/13/2020, 05/08/2019, 05/02/2018 TECHNIQUE: Digital breast tomosynthesis is performed in both the craniocaudal and mediolateral oblique views along with computer-aided detection (CAD). Synthesized 2D images are generated from the tomosynthesis. FINDINGS: The breasts are heterogeneously dense, which may obscure small masses (ACR BI-RADS breast composition Category c). There are no significant masses, abnormal calcifications, or other abnormalities. No architectural abnormality or developing density or significant change from prior studies. The axilla and skin contours are unremarkable. MM/MM tomosynthesis screening BI IMPRESSION: No mammographic evidence of malignancy. ASSESSMENT: BI-RADS 1: Negative RECOMMENDATION: Routine annual mammography screening. This patient's information was entered into a reminder system with a target due date for their next mammogram.
== END 2022-06-01 07:18 | disposition home or self-care (01) ==
LOC: HO.MAMMO 07:17
PROVIDERS: PCP Internal Medicine; Visit Provider Internal Medicine
DX: Z12.31 Encounter for screening mammogram for malignant neoplasm of breast (principal)
CPT/HCPCS: 77063; 77067

== ENCOUNTER → 2022-06-13 12:48 | Outpatient (BNVA) | payer MEDICARE, SELFPAY | PROVIDERS: PCP Internal Medicine; Visit Provider Nurse Practitioner Family | DX: N39.0 Urinary tract infection, site not specified (principal) | CPT/HCPCS: 51798; 99202 ==

== ENCOUNTER 2022-06-29 12:51 | Outpatient (REF) | payer MEDICARE, SELFPAY ==
--- NOTE | ~2022-06-29 | US_ITS ---
EXAMINATION: US THYROID CLINICAL INFORMATION: Uemnmk-zreoiyqaqg-atfafih diffuse (endemic) goiter. COMPARISON: Ultrasound soft tissue head/neck thyroid dated 06/06/2018. TECHNIQUE: Linear transducer grayscale and color Doppler examination with attention to the region of the thyroid. FINDINGS: SIZE: Measurements of the thyroid lobes and nodules are given in sagittal, anteroposterior and transverse dimensions respectively. Right Thyroid Lobe: 5.3 x 2.3 x 1.8 cm, volume 11.1 mL. Previously 4.7 x 1.5 x 1.7 cm, volume 6.3 mL. Parenchyma: The gland echotexture is heterogeneous. Thyroid vascularity is normal. Left Thyroid Lobe: 4.7 x 1.6 x 1.5 cm, volume 5.8 mL. Previously 4.5 x 1.6 x 1.4 cm, volume 5.3 mL. Parenchyma: The gland echotexture is homogeneous. Thyroid vascularity is normal. Isthmus: 0.26 cm in maximum AP dimension. Previously 0.3 cm. Estimated total number of nodules greater than or equal to 1 cm: 0. Order Entry Clerk nodules are described as follows: 1. Location: Right superior. Size: 0.6 x 0.4 x 0.5 cm, volume 0.06 mL. Previously: 0.6 x 0.4 x 0.5 cm, volume 0.06 mL. Nodule characteristics: Composition: Spongiform (0). Echogenicity: Anechoic (0). Shape: Not taller than wide (0). Margins: Smooth (0). Echogenic Foci: None (0). ACR TI-RADS total points: 0 ACR TI-RADS category: 1 Significant change in size (>/= 20% in 2 dimensions and minimal increase of 2 mm or 50% or greater increase in volume): None Change in features: None Change in ACR TI-RADS risk category: No change 2. Location: Right superior. Size: 0.6 x 0.4 x 0.7 cm, volume 0.08 mL. Previously: 0.9 x 0.5 x 0.7 cm, volume 0.16 mL. Nodule characteristics: Composition: Cystic(0). ACR TI-RADS total points: 0 ACR TI-RADS category: 1 Significant change in size (>/= 20% in 2 dimensions and minimal increase of 2 mm or 50% or greater increase in volume): None Change in features: None Change in ACR TI-RADS risk category: No change 3. Location: Right mid. Size: 0.6 x 0.4 x 0.6 cm, volume 0.08 mL. Previously: 0.5 x 0.3 x 0.5 cm, volume 0.04 mL. Nodule characteristics: Composition: Mixed cystic and solid (1). Echogenicity: Anechoic (0). Shape: Not taller than wide (0). Margins: Smooth (0). Echogenic Foci: Punctate echogenic foci (3). ACR TI-RADS total points: 4 ACR TI-RADS category: 4 Significant change in size (>/= 20% in 2 dimensions and minimal increase of 2 mm or 50% or greater increase in volume): None Change in features: None Change in ACR TI-RADS risk category: No change 4. Location: Right inferior. Size: 0.8 x 0.5 x 0.7 cm, volume 0.15 mL. Previously: 0.7 x 0.5 x 0.6 cm, volume 0.11 mL. Nodule characteristics: Composition: Cystic(0). ACR TI-RADS total points: 0 ACR TI-RADS category: 1 Significant change in size (>/= 20% in 2 dimensions and minimal increase of 2 mm or 50% or greater increase in volume): None Change in features: None Change in ACR TI-RADS risk category: No change 5. Location: Right inferior. Size: 0.8 x 0.45 x 0.7 cm, volume 0.13 mL. Previously: 0.6 x 0.3 x 0.6 cm, volume 0.06 mL. Nodule characteristics: Composition: Spongiform (0). Echogenicity: Anechoic (0). Shape: Not taller than wide (0). Margins: Smooth (0). Echogenic Foci: None (0). ACR TI-RADS total points: 0 ACR TI-RADS category: 1 Significant change in size (>/= 20% in 2 dimensions and minimal increase of 2 mm or 50% or greater increase in volume): None Change in features: None Change in ACR TI-RADS risk category: No change There are multiple spongiform and cystic nodules seen bilaterally. NODES: No lymphadenopathy is seen in the tissue surrounding the thyroid gland. US/US thyroid IMPRESSION: Multiple subcentimeter thyroid nodules. None of the nodules are suspicious. ACR TI-RADS RECOMMENDATION REFERENCE: Ultrasound-guided fine-needle aspiration, followup ultrasound, no further follow up. * TR1 (0 point) and TR2 (2 points): No FNA or follow up * TR3 (3 points): FNA if more than or equal to 2.5 cm in maximum dimension, followup ultrasound in 1, 3 and 5 years if 1.5 to 2.4 cm in maximum dimension. * TR4 (4-6 points): FNA if more than or equal to 1.5 cm in maximum dimension, followup ultrasound in 1, 2, 3 and 5 years if 1 to 1.4 cm in maximum dimension. * TR5 (more than or equal to 7 points): FNA if more than or equal to 1 cm in maximum dimension, followup ultrasound every year for 5 years if 0.5 to 0.9 cm in maximum dimension. * TR3, TR4 or TR5 nodules that are below the size threshold for follow up receive no follow up.
== END 2022-06-29 12:52 | disposition home or self-care (01) ==
LOC: HO.HMGCX 12:51
PROVIDERS: PCP Internal Medicine; Visit Provider Internal Medicine
DX: E01.0 Iodine-deficiency related diffuse (endemic) goiter (principal)
CPT/HCPCS: 76536

== ENCOUNTER 2022-07-06 12:49 | Outpatient (REF) | payer MEDICARE, SELFPAY ==
--- NOTE | ~2022-07-06 | US_ITS ---
EXAMINATION: US RETROPERITONEAL COMPLETE (RENAL) CLINICAL INFORMATION: Urinary tract infection, site not specified. COMPARISON: None available. TECHNIQUE: Real-time imaging of the kidneys and bladder. FINDINGS: RIGHT KIDNEY: 9.7 x 3.3 x 5.4 cm (SAG x AP x TRV). The kidney is normal in size, contour, and echogenicity. Renal cortical thickness is normal. No renal calculi or hydronephrosis. At the upper pole, a 6 mm anechoic, simple cyst is seen. This is a benign finding, for which no imaging follow-up is recommended. LEFT KIDNEY: 11.7 x 5.0 x 4.0 cm (SAG x AP x TRV). The kidney is normal in size, contour, and echogenicity. Renal cortical thickness is normal. No focal parenchymal lesions or hydronephrosis. At the lower pole, a 2 mm nonobstructing calculus is seen, with twinkle artifact. BLADDER: Well distended and normal. Bilateral ureteral jets are demonstrated. Prevoid bladder volume is 501 mL. Postvoid bladder volume is 38 mL. There is mild debris noted within the urinary bladder. US/US retroperitoneal comp IMPRESSION: 1. A 2 mm nonobstructing left renal calculus is seen. No right renal calculus is seen. No hydronephrosis is noted bilaterally. 2. A 6 mm right renal benign, simple cyst is seen, for which no imaging follow-up is recommended. 3. Mild debris is noted within the urinary bladder. Recommend correlation with patient's most recent urinalysis.
== END 2022-07-06 12:50 | disposition home or self-care (01) ==
LOC: HO.HMGCX 12:49
PROVIDERS: PCP Internal Medicine; Visit Provider Nurse Practitioner Family
DX: N39.0 Urinary tract infection, site not specified (principal)
CPT/HCPCS: 76770

== ENCOUNTER 2022-07-09 06:02 | Outpatient (REF) | payer MEDICARE, SELFPAY ==
[2022-07-09 11:27] LABS: MANUAL DIFF FLAG NO
[2022-07-09 11:36] LABS: Basophils Absolute Auto 0.1 X10*3/uL (0.0-0.2); Basophils Percent Auto 1.9 % (0-2); Eosinophils Absolute Auto 0.1 X10*3/uL (0.0-0.4); Eosinophils Percent Auto 3.1 % (0-4); Hematocrit 46.1 % (37.0-47.0); Hemoglobin 15.1 g/dl (12.0-16.0); Imm Gran Abs Auto 0.02 X10*3/uL (0.00-0.03); Imm Gran Pct Auto 0.5 % (0.0-0.4); Lymphocytes Absolute Auto 1.4 X10*3/uL (1.2-4.9); Lymphocytes Percent Auto 33.1 % (20-40); Mean Corpuscular HGB Conc 32.8 g/dl (31.0-35.0); Mean Corpuscular Volume 91.5 fL (80.0-98.0); Mean Platelet Volume 10.8 fL (9.4-12.3); Monocytes Absolute Auto 0.4 X10*3/uL (0.1-1.2); Monocytes Percent Auto 9.9 % (2-11); Neutrophils Absolute Auto 2.1 x10*3/uL (2.0-8.3); Neutrophils Percent Auto 51.5 % (45-73); Platelet Count 236 X10*3/uL (160-400); Red Blood Count 5.04 X10*6/uL (4.20-5.50); Red Cell Distribution Width 12.2 % (11.0-16.0); White Blood Count 4.1 X10*3/uL (4.8-10.8)
[2022-07-09 12:07] LABS: Alanine Aminotransferase 19 U/L (0-31); Albumin Level 4.5 g/dL (3.5-5.0); Alkaline Phosphatase 69 U/L (39-117); Anion Gap 13 (12-20); Aspartate Amino Transferase 24 U/L (5-31); Bilirubin Total 0.9 mg/dL (0.0-1.0); Blood Urea Nitrogen 18 mg/dL (9-16); Calcium 9.6 mg/dL (8.4-10.2); Carbon Dioxide 30 mmol/L (22-29); Chloride 106 mmol/L (96-108); Cholesterol 291 mg/dL; Estimated Glomerular Filt Rate > 60; Glucose Fasting 94 mg/dL (60-99); HDL Cholesterol 71 mg/dL; LDL Cholesterol Calculated 204 mg/dl; Potassium 4.6 mmol/L (3.3-5.1); Sodium 144 mmol/L (135-145); Total Protein 6.8 g/dL (6.5-8.0); Triglycerides 81 mg/dL
[2022-07-09 12:12] LABS: TSH reflex Free T4 1.62 uIU/mL (0.32-4.0); Vitamin D 25-OH Total 48.6 ng/mL (>30)
== END 2022-07-09 06:03 | disposition home or self-care (01) ==
LOC: HO.HMGCLDS 06:02
PROVIDERS: PCP Internal Medicine; Visit Provider Internal Medicine
DX: Z00.00 Encounter for general adult medical examination without abnormal findings (principal); E78.5 Hyperlipidemia, unspecified
CPT/HCPCS: 36415; 80053; 80061; 82306; 84443; 85025

== ENCOUNTER → 2022-08-17 09:18 | Outpatient (BNVA) | payer MEDICARE, SELFPAY | PROVIDERS: PCP Internal Medicine; Visit Provider Nurse Practitioner Family | DX: N39.0 Urinary tract infection, site not specified (principal) | CPT/HCPCS: 51798; 99212 ==

== ENCOUNTER 2023-03-18 13:32 | Outpatient (REF) | payer MEDICARE, SELFPAY ==
[2023-03-18 14:22] LABS: Appearance Urine Cloudy; Color Urine Yellow; Glucose Urine UA Negative (Negative); Leukocyte Esterase Urine Small (1+) (Negative); Nitrite Urine Positive (Negative); PH 5.5 (5.0-9.0); Specific Gravity - Urine 1.025 (1.005-1.025); UMIC TRIGGER UA YES; Urine Blood Large (3+) (Negative); Urine Ketones 15 mg/dL (Negative); Urine Protein 30 (1+) mg/dL (Neg-Trace)
[2023-03-18 14:29] LABS: Bacteria Urine None Seen (None Seen); Hyaline Casts Urine 0-2 /LPF (0-2); RBC Urine >20 /HPF (0-2); Squamous Epithelial Cell Urine 0-2 /HPF (0-2); WBC Urine >50 /HPF (0-5)
== END 2023-03-18 13:33 | disposition home or self-care (01) ==
LOC: HO.LAB 13:32
PROVIDERS: PCP Internal Medicine; Visit Provider Nurse Practitioner Family
DX: N39.0 Urinary tract infection, site not specified (principal)
CPT/HCPCS: 81001; 87086

== ENCOUNTER 2023-04-23 12:13 | Outpatient (REF) | payer MEDICARE, SELFPAY ==
[2023-04-23 15:53] LABS: Appearance Urine Hazy; Color Urine Other; Glucose Urine UA Negative (Negative); Leukocyte Esterase Urine Large (3+) (Negative); Nitrite Urine Negative (Negative); Specific Gravity - Urine <= 1.005 (1.005-1.025); UMIC TRIGGER UA YES; Urine Blood Large (3+) (Negative); Urine Ketones Negative (Negative); Urine Protein Trace mg/dL (Neg-Trace)
[2023-04-23 15:59] LABS: Bacteria Urine None Seen (None Seen); Hyaline Casts Urine 0-2 /LPF (0-2); RBC Urine 0-2 /HPF (0-2); Squamous Epithelial Cell Urine 0-2 /HPF (0-2); WBC Urine >50 /HPF (0-5)
== END 2023-04-23 12:14 | disposition home or self-care (01) ==
LOC: HO.LAB 12:13
PROVIDERS: PCP Internal Medicine; Visit Provider Nurse Practitioner Family
DX: N39.0 Urinary tract infection, site not specified (principal)
CPT/HCPCS: 81001; 87086

== ENCOUNTER 2023-05-10 14:11 | Outpatient (AMB) | payer MEDICARE, SELFPAY ==
--- NOTE | 2023-05-10 14:37 | MHC.OFFVIS ---
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 Accompanied by: Self / Same As Patient Allergies banana Allergy (Intermediate, Verified 05/11/23 09:26) tongue tingling coconut Allergy (Intermediate, Verified 05/11/23 09:26) tongue tingling morphine Adverse Reaction (Intermediate, Verified 05/11/23 09:26) Nausea and Vomiting NSAIDS (Non-Steroidal Anti-Inflamma Adverse Reaction (Intermediate, Verified 05/11/23 09:26) Nausea and Vomiting NARCOTICS Adverse Reaction (Intermediate, Uncoded 05/11/23 09:26) SEVERE N/V FOR DAYS sensitive to pain meds Adverse Reaction (Intermediate, Uncoded 05/11/23 09:26) Nausea and Vomiting Medication List - Last Reconciled 05/11/23 by RAMÓN Yang-GEORGE ascorbic acid (vitamin C) 1 g PO Q6H calcium carbonate (Calcium) 600 mg PO DAILY d-mannose 700 mg PO estradiol 0.01%(0.1mg/gram) vaginally daily for the first month; pea sized amount then vaginally 3 times a week; pea sized amount to urethra 3 times a week 30 days multivitamin 1 tab PO DAILY omega 6-gdp-nfh-fish oil 1,000 mg (120 mg-180 mg) (Fish Oil) 1 cap PO DAILY HPI HPI Comments History of Present Illness Details Jeanette is a pleasant 67 year old female patient of Dr. Oliva. She has a past medical history of cataracts, hyperlipidemia, and osteoporosis. She presents to the office today for recurrent urinary tract infections. Since her last office last office visit here approximately 6 months ago she has had two episodes of UTI like symptoms however upon further assessment evaluation with urine culture, cultures were negative. She reports to be drinking plenty of water daily. She denies any issues with constipation and or her bowels. Previous work up has included a retroperitoneal ultrasound noting a 2 mm nonobstructing left renal calculus is seen. No right renal calculus is seen. No hydronephrosis is noted bilaterally. A 6 mm right renal benign, simple cyst is seen, for which no imaging follow-up is recommended. Mild debris is noted within the urinary bladder. When asked she reports to be doing and feeling well. She reports compliance with vitamin-C and D mannose. She currently denies any UTI like symptoms at this time. When asked she denies urinary urgency, urinary frequency, incontinence, nocturia, hematuria, changes to urinary stream, flank pain, fever, and or chills. In office urinalysis results reviewed with the patient today. PVR 0 mL. Discussed at length potential causes for lower urinary tract symptoms patient had been experiencing. She otherwise offers no other issues or concerns at this time. [facility] Medical History Cataract COVID-19 vaccine series completed PONV (postoperative nausea and vomiting) Hyperlipidemia Osteoporosis Surgical History H/O colonoscopy H/O breast surgery H/O: hysterectomy Family History Father No problems noted. Mother No problems noted. Social History Housing: House Are you a primary rn medicare to a significant other at home: No Do you presently have visiting nurse or other home services: No Alcohol intake: never Patient Tobacco Use Status: Never used Tobacco e-Cigarette/Vaping Use: Never Used Current occupational status: employed Cognitive needs: No Hearing needs: No Vision needs: Yes Review of Systems Const All systems reviewed & are unremarkable except as noted in HPI and below Reports as per HPI Eyes Reports as per HPI and Reports no additional complaints ENT Reports no additional complaints Card Reports no additional complaints Resp Reports no additional complaints GI Reports no additional complaints Reports as per HPI Musc Reports as per HPI Neuro Reports no additional complaints Psych Reports no additional complaints Endo Reports no additional complaints Don/Lymph Reports no additional complaints Aller/Immun Reports no additional complaints Physical Exam Const General: cooperative, healthy appearing, comfortable, no acute distress, well developed, alert and awake Nutritional Appearance: average body habitus Orientation/consciousness: patient oriented x3 Limitations: no limitations HEENT Head: Yes normal to inspection, Yes normocephalic and Yes atraumatic Ears: hearing grossly normal bilaterally Eyes General: appearance normal, both eyes and all related structures Neck Neck: Yes normal visual inspection and Yes trachea midline Chest Chest palpation & inspection: normal inspection of the chest Resp Effort & Inspection: normal respiratory effort and able to speak in complete sentences Cardio Rate: regular rate GI Inspection: Yes normal to inspection General: Yes no CVA tenderness Back/Spine/Pelvis Back: no CVA tenderness Skin General skin exam: no rashes or lesions noted Neuro General: patient oriented x3 Extrem General: Yes normal to inspection Psych Appearance: grossly normal and well kempt Mental Status: mental status grossly normal Speech and movement: Normal speech and movement present and Clear speech present Affect: normal affect Attitude: cooperative Thought process: Normal thought process present Thought content: Normal thought content present Insight: Good insight present (Psych) Judgement: Good judgement present (Psych) Office Procedures Post Void Residual Post Residual Void Post Void Residual (PVR): 0 [id number]-Tqam Void Residual by ultrasound Results AMB Urinalysis, Automated UA Leukoctes 0 Cathie/uL Last Edit by [facility] on 05/10/23 14:44 UA Nitrite Negative Last Edit by [facility] on 05/10/23 14:44 UA Urobilinogen 0.2 mg/dL Last Edit by [facility] on 05/10/23 14:44 UA Protein 0 mg/dL Last Edit by [facility] on 05/10/23 14:44 UA pH 6.0 Last Edit by [facility] on 05/10/23 14:44 UA Blood 0 Simone/uL Last Edit by [facility] on 05/10/23 14:44 UA Specific [place] 1.015 Last Edit by [facility] on 05/10/23 14:44 UA Ketone Negative Last Edit by [facility], [facility] on 05/10/23 14:44 UA Bilirubin 0 mg/dL Last Edit by [facility], [facility] on 05/10/23 14:44 UA Glucose 0 mg/dL Last Edit by [facility], [facility] on 05/10/23 14:44 Results Reviewed Results Reviewed: Laboratory Last Values Urine pH (Auto) 6.0 05/10/23 14:43 Specific [place] (Auto) 1.015 05/10/23 14:43 Urine Protein (Auto) 0 mg/dL 05/10/23 14:43 Glucose (UA)(Auto) 0 mg/dL 05/10/23 14:43 Urine Ketones (Auto) Negative 05/10/23 14:43 Urine Blood (Auto) 0 Simone/uL 05/10/23 14:43 Urine Nitrite (Auto) Negative 05/10/23 14:43 Urine Bilirubin (Auto) 0 mg/dL 05/10/23 14:43 Urine Urobilinogen (Auto) 0.2 mg/dL 05/10/23 14:43 Leukocyte Esterase (Auto) 0 Cathie/uL 05/10/23 14:43 Assessment & Plan Assessment & Plan (1) Recurrent UTI: Code(s): N39.0 - Urinary tract infection, site not specified Plan In office urinalysis results reviewed with the patient today. PVR 0 mL. Patient denies any urological issues or concerns at this time. She denies any UTI like symptoms. Discussed UTI prevention with D mannose supplement, vitamin-C, increasing fluid intake, behavioral therapy with timed voiding, perineal hygiene and postcoital voiding, and management of constipation with stool softeners and increased fiber intake. Start Estrace cream as discussed and prescribed Discussed possible near future microgen if symptoms arise given patient with previous UTI like symptoms however cultures negative. Discussed possible near future in office cystoscopy if symptoms persist and/or worsen Follow-up in 3 months with PVR; or sooner with any questions, concerns, and or issues. Orders: Orders AMB Urinalysis Automated 05/10/23 R33.9 - Retention of urine, unspecified AMB Post Void Residual by ultrasound 05/10/23 R33.9 - Retention of urine, unspecified Medications: New estradiol 0.01%(0.1mg/gram) vaginally daily for the first month; pea sized amount then vaginally 3 times a week; pea sized amount to urethra 3 times a week 30 days 42.5 grams 3RF Discontinued nitrofurantoin monohyd/m-cryst 100 mg (Macrobid) must administer with a meal/food Discontinued Reason: Patient Completed Course 100 mg PO BID 14 days 28 caps 0RF Patient Instructions: The patient had an opportunity to ask questions regarding the treatment plan. All questions were answered. Physical exam, labs, and imaging were discussed and reviewed in detail. As well as risks, benefits, and discussion of treatment choices. No major barriers to understanding were identified. The patient expressed understanding and agreement with the above treatment plan. The patient was made aware they should contact our office by phone for worsening of their current condition, the appearance of new symptoms, or with any questions or concerns. Compliance is encouraged with any medications and follow up testing that is ordered. It is a privilege to be allowed the opportunity to participate in? your urological care.? Again, if you have any questions or concerns If you have any questions or concerns please do not hesitate to contact me. The office is [phone]. This note is constructed using voice recognition software. While every effort has been made to ensure accuracy senior principal architect errors may have been included. Yours sincerely, BERNADINE Yang Coding Level of Care Code Est Pt Level 4 (46344) Diagnoses Recurrent UTI N39.0 CPT Codes Post Residual Void - PVR CPT Code: 43521-Pski Void Residual by ultrasound ([id number])
== END 2023-05-10 14:59 | disposition home or self-care (01) ==
PROVIDERS: PCP Internal Medicine; Visit Provider Nurse Practitioner Family
DX: N39.0 Urinary tract infection, site not specified (principal)
CPT/HCPCS: 99214

== ENCOUNTER → 2023-05-10 14:11 | Outpatient (BNVA) | payer MEDICARE, SELFPAY | PROVIDERS: PCP Internal Medicine; Visit Provider Nurse Practitioner Family | DX: N39.0 Urinary tract infection, site not specified (principal); R33.9 Retention of urine, unspecified | CPT/HCPCS: 51798; 81003; 99212 ==

== ENCOUNTER 2023-06-14 07:11 | Outpatient (REF) | payer MEDICARE, SELFPAY ==
--- NOTE | ~2023-06-14 | MM_ITS ---
EXAMINATION: MM SCREENING DIGITAL BREAST TOMOSYNTHESIS, BILATERAL CLINICAL INFORMATION: Screening. Asymptomatic. Patient has a history of bilateral excisional biopsies. The right excisional biopsy was benign and the left biopsy showed atypical cells. These procedures to place in the remote past. COMPARISON: Mammography: This study is compared with prior exams dating back to 2019. TECHNIQUE: Digital breast tomosynthesis is performed in both the craniocaudal and mediolateral oblique views along with computer-aided detection (CAD). Synthesized 2D images are generated from the tomosynthesis. FINDINGS: The breasts are heterogeneously dense, which may obscure small masses (ACR BI-RADS breast composition Category c). There are no significant masses, abnormal calcifications, or other abnormalities. MM/MM tomosynthesis screening BI IMPRESSION: No mammographic evidence of malignancy. ASSESSMENT: BI-RADS BI-RADS 1 - Negative RECOMMENDATION: Routine annual mammography screening. 1 year F/U This examination should not preclude the clinical evaluation of a suspicious palpable abnormality. This patient's information was entered into a reminder system with a target due date for their next mammogram.
== END 2023-06-14 07:12 | disposition home or self-care (01) ==
LOC: HO.MAMMO 07:11
PROVIDERS: PCP Internal Medicine; Visit Provider Internal Medicine
DX: Z12.31 Encounter for screening mammogram for malignant neoplasm of breast (principal)
CPT/HCPCS: 77063; 77067

== ENCOUNTER → 2023-06-14 07:30 | Outpatient (BNV) | payer MEDICARE, SELFPAY | PROVIDERS: PCP Internal Medicine; Visit Provider Radiology Diagnostic Radiology | DX: Z12.31 Encounter for screening mammogram for malignant neoplasm of breast (principal) | CPT/HCPCS: 77063; 77067 ==

== ENCOUNTER 2024-06-19 10:34 | Outpatient (REF) | payer MEDICARE, SELFPAY | END 2024-06-19 10:35 | disposition home or self-care (01) | LOC: HO.MAMMO 10:34 | PROVIDERS: PCP Family Medicine; Visit Provider Internal Medicine | DX: Z12.31 Encounter for screening mammogram for malignant neoplasm of breast (principal) | CPT/HCPCS: 77063; 77067 ==

== ENCOUNTER → 2024-06-19 11:00 | Outpatient (BNV) | payer MEDICARE, SELFPAY | PROVIDERS: PCP Family Medicine; Visit Provider Internal Medicine | DX: Z12.31 Encounter for screening mammogram for malignant neoplasm of breast (principal) | CPT/HCPCS: 77063; 77067 ==

== ENCOUNTER 2024-12-07 10:12 | Outpatient (AMB) | payer MEDICARE, SELFPAY ==
--- NOTE | 2024-12-07 10:22 | A.OFFPC_ITS ---
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 Accompanied by: Self / Same As Patient Allergies banana Allergy (Intermediate, Verified 12/07/24 10:23) tongue tingling coconut Allergy (Intermediate, Verified 12/07/24 10:23) tongue tingling morphine Adverse Reaction (Intermediate, Verified 12/07/24 10:23) Nausea and Vomiting NSAIDS (Non-Steroidal Anti-Inflamma Adverse Reaction (Intermediate, Verified 12/07/24 10:23) Nausea and Vomiting NARCOTICS Adverse Reaction (Intermediate, Uncoded 12/07/24 10:23) SEVERE N/V FOR DAYS sensitive to pain meds Adverse Reaction (Intermediate, Uncoded 12/07/24 10:23) Nausea and Vomiting Medication List - Last Reconciled 12/07/24 by EDDIE Griffith ascorbic acid (vitamin C) 1 g PO Q6H calcium carbonate (Calcium 600) 600 mg PO DAILY d-mannose 700 mg PO multivitamin 1 tab PO DAILY omega 2-wky-gzl-fish oil 1,000 (120-180) mg (Fish Oil) 1 cap PO DAILY Tobacco use date assessed: 12/07/24 Fall risk assessment: No Falls in past year Last assessed Fall Risk: 12/07/24 Dental Screening Dental Screen Date: 12/07/24 Did you have a dental visit in the last 12 months?: Yes Did you have a dental problem in the last 6 months where you did not have access to dental care?: No Was dental information given to patient?: No HPI HPI Comments History of Present Illness Details 69-year-old female with history of osteo porosis, hyperlipidemia presents to the office today for management of chronic conditions and to establish care. Last PCP Osteoporosis-on alendronate, has been on for about 5 years. Taking calcium and vitamin-D. Last DEXA scan overdue HLD-not on statin Thyromegaly- euthyroid Concerns: Family concerned about early onset dementia. Dyslexia and Irlen syndrome since childhood. Has difficulty finishing a sentence. Describes a delay. Leaves rooms without them knowing. Not misplacing items or getting lost. Health maintenance: Last screening mammogram 06/2024, 1 year follow-up advised, negative for malignancy. Last screening colonoscopy 01/2021 with 10 year follow-up advised. Dr. Neri Last DEXA scan ROS: General: No fevers, malaise, unintentional weight loss HEENT: No blurred vision, diplopia. No sore throat, nasal congestion, rhinorrhea, sinus pain, ear pain Cardiovascular: No chest pain, palpitations, or leg edema Respiratory: No shortness of breath, wheezing, cough GI: No abdominal pain, nausea, vomiting, diarrhea, constipation, melena, hematochezia : No dysuria, hematuria, increased urinary frequency, decreased urinary output MSK: No myalgia, back pain Neuro: No headaches, weakness, paresthesias Skin: No rashes or lesions EXAM: Constitutional - Awake and Alert, No apparent distress Eyes - PERRL Cardiovascular - S1S2, RRR, No edema Respiratory - Normal lung expansion, Normal respiratory effort, No respiratory distress, CTA bilaterally Extremities - no calf tenderness bilaterally, no swelling Skin - Warm/Dry Neurological - Alert & oriented x3 Psychological - Appropriate affect PFSH Medical History (Updated 12/07/24 @ 10:46 by EDDIE Griffith) Irlen syndrome Breast atypical hyperplasia Cataract COVID-19 vaccine series completed PONV (postoperative nausea and vomiting) Hyperlipidemia Osteoporosis Surgical History (Updated 12/03/24 @ 16:37 by Elva Millard) H/O colonoscopy (~01/31/21) H/O breast surgery H/O: hysterectomy Family History Father No problems noted. Mother No problems noted. Social History Housing: House Are you a primary continuum of care manager to a significant other at home: No Do you presently have visiting nurse or other home services: No Alcohol intake: never Patient Tobacco Use Status: Never used Tobacco e-Cigarette/Vaping Use: Never Used service: No Current occupational status: retired Cognitive needs: No Hearing needs: No Vision needs: Yes (Rx glasses) Questionnaire PHQ-9 Over the last 2 weeks, how often have you been bothered by any of the following problems? 1. Little interest or pleasure in doing things: not at all 2. Feeling down, depressed, or hopeless: not at all 3. Trouble falling or staying asleep, or sleeping too much: not at all 4. Feeling tired or having little energy: not at all 5. Poor appetite or overeating: not at all 6. Feeling bad about yourself - or that you are a failure or have let yourself or your family down: not at all 7. Trouble concentrating on things, such as reading the newspaper or watching television: not at all 8. Moving or speaking so slowly that other people could have noticed. Or the opposite - being so fidgety or restless that you have been moving around a lot more than usual: not at all 9. Thoughts that you would be better off or of hurting yourself in some way: not at all Total score: 0 Source: Developed by Drs. Jovani Otto, Megan Yusuf, Von Aaron and colleagues, with an educational yuri from [employer]. Thrive Questionnaire Date Thrive assessed: 12/07/24 I am a: Patient What is your living situation today?: I have a steady place to live Within the past 12 months, did the food you bought not last and you didn't have the money to get more?: Never true Within the past 12 months, did you worry whether your food would run out before you got money to buy more?: Never true Do you have trouble paying for medicines?: No Do you have trouble getting transportation to medical appointments?: No Do you have trouble paying your heating and electricity bill?: No Do you have trouble taking care of your child, family member or friend?: No Do you have trouble with day-to-day activities such as bathing, preparing meals, shopping, managing finances, etc.?: No Are you currently unemployed and looking for a job?: No Are you interested in more education?: No Please select the resources that you would like help with: None THRIVE Score: 0 LEX-7 AMB Questionnaire LEX-7 Date LEX - 7 assessed: 12/07/24 Feeling nervous, anxious, or on edge: 0 = Not at all Not being able to stop or control worryin = Not at all Worrying too much about different things: 0 = Not at all Trouble relaxin = Not at all Being so restless that it is hard to sit still: 0 = Not at all Becoming easily annoyed or irritable: 0 = Not at all Feeling afraid as if something awful might happen: 0 = Not at all Total LEX-7 score (0-4 normal; 5-9 mild; 10-14 moderate; 15-21 severe): 0 Source: Developed by Drs. Jovani Otto, Megan Yusuf, Von Aaron and colleagues, with an educational yuri from [employer]. Physical exam (Primary Care) Vital Signs: Last Vital Signs Temp 99.4 F 12/07/24 10:26 Pulse 94 12/07/24 10:26 Resp 16 12/07/24 10:26 BP 134/62 12/07/24 10:26 Pulse Ox 96 12/07/24 10:26 Oxygen Delivery Method Room Air 12/07/24 10:26 BMI result Body Mass Index 19.1 Tobacco/Smoking Status: Tobacco use Status Tobacco use date assessed 12/07/24 12/07/24 10:28 Patient Tobacco Use Status Never used Tobacco 12/07/24 10:24 e-Cigarette/Vaping Use Never Used 12/07/24 10:24 Thrive Assessment: Date of Thrive Assessment Date Thrive assessed 06/22/22 12/07/24 10:24 Coding Level of Care Code New Pt Level 4 (56936) Complex EM visit Add On G2211 Diagnoses Osteoporosis M81.0 Hyperlipidemia E78.5 Irlen syndrome H53.8 Assessment & Plan Assessment & Plan (1) Osteoporosis: Comment: Alendronate discontinued 11/2019 5-2 year drug holiday Code(s): M81.0 - Age-related osteoporosis without current pathological fracture Category: Medical Plan: DEXA scan ordered. Discontinue alendronate as she has been on this for 5 years, 2 year drug holiday recommended. 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 Low suspicion for dementia based on these symptoms. She is referred to speech therapy. Plan Follow-up for annual physical exam. Labs ordered as below. Orders: Orders Complete Blood Count Auto Diff Today E01.0 - Iodine-deficiency related diffuse (endemic) goiter, E55.9 - Vitamin D deficiency, unspecified, E78.5 - Hyperlipidemia, unspecified XR DEXA axial skeleton Today M81.0 - Age-related osteoporosis without current pathological fracture Basic Metabolic Panel Today E01.0 - Iodine-deficiency related diffuse (endemic) goiter, E55.9 - Vitamin D deficiency, unspecified, E78.5 - Hyperlipidemia, unspecified Lipid Panel Today E01.0 - Iodine-deficiency related diffuse (endemic) goiter, E55.9 - Vitamin D deficiency, unspecified, E78.5 - Hyperlipidemia, unspecified Liver Panel Today E01.0 - Iodine-deficiency related diffuse (endemic) goiter, E55.9 - Vitamin D deficiency, unspecified, E78.5 - Hyperlipidemia, unspecified TSH reflex Free T4 Today E01.0 - Iodine-deficiency related diffuse (endemic) goiter, E55.9 - Vitamin D deficiency, unspecified, E78.5 - Hyperlipidemia, unspecified Vitamin B12 and Folate Today E01.0 - Iodine-deficiency related diffuse (endemic) goiter, E55.9 - Vitamin D deficiency, unspecified, E78.5 - Hyperlipidemia, unspecified Referrals Speech and Hearing Referral H53.8 - Other visual disturbances, R48.0 - Dyslexi a and alexia
[2024-12-07 10:26] VITALS: BP 134/62; PULSE 94; RESP 16; TEMP 37.4; O2SAT 96; BMI 19.1
== END 2024-12-07 10:47 | disposition home or self-care (01) ==
LOC: HO.HMCHD 10:13
PROVIDERS: PCP Physician Assistant; Visit Provider Physician Assistant
DX: M81.0 Age-related osteoporosis without current pathological fracture (principal); E78.5 Hyperlipidemia, unspecified; H53.8 Other visual disturbances

== ENCOUNTER → 2024-12-07 10:12 | Outpatient (BNVA) | payer MEDICARE, SELFPAY | PROVIDERS: PCP Physician Assistant; Visit Provider Physician Assistant | DX: Z76.89 Persons encountering health services in other specified circumstances (principal); M81.0 Age-related osteoporosis without current pathological fracture; E78.5 Hyperlipidemia, unspecified; H53.8 Other visual disturbances; E01.0 Iodine-deficiency related diffuse (endemic) goiter; Z13.39 Encounter for screening examination for other mental health and behavioral disorders; Z13.30 Encounter for screening examination for mental health and behavioral disorders, unspecified | CPT/HCPCS: 96127; 99202 ==

== ENCOUNTER 2024-12-07 11:02 | Outpatient (REF) | payer MEDICARE, SELFPAY ==
[2024-12-07 13:19] LABS: MANUAL DIFF FLAG NO
[2024-12-07 13:32] LABS: Hematocrit 46.8 % (37.0-47.0); Hemoglobin 15.4 g/dl (12.0-16.0); Imm Gran Abs Auto 0.01 X10*3/uL (0.00-0.03); Imm Gran Pct Auto 0.2 % (0.0-0.4); Lymphocytes Absolute Auto 1.0 X10*3/uL (1.2-4.9); Mean Corpuscular HGB Conc 32.9 g/dl (31.0-35.0); Mean Corpuscular Hemoglobin 29.9 pg (27.0-33.0); Mean Corpuscular Volume 90.9 fL (80.0-98.0); NRBC Abs Auto 0.000 X10*3/uL (0.0-0.012); NRBC Pct Auto 0.0 /100WBC (0.0-0.2); Platelet Count 222 X10*3/uL (160-400); Red Blood Count 5.15 X10*6/uL (4.20-5.50); White Blood Count 6.0 X10*3/uL (4.8-10.8)
[2024-12-07 13:58] LABS: Alanine Aminotransferase 22 U/L (0-31); Albumin Level 5.0 g/dL (3.5-5.0); Alkaline Phosphatase 49 U/L (39-117); Anion Gap 14 (12-20); Aspartate Amino Transferase 30 U/L (5-31); Blood Urea Nitrogen 16 mg/dL (9-16); Calcium 10.1 mg/dL (8.4-10.2); Carbon Dioxide 28 mmol/L (22-29); Chloride 107 mmol/L (96-108); Cholesterol 270 mg/dL (<200); Estimated Glomerular Filt Rate > 60; HDL Cholesterol 71 mg/dL (>40); Potassium 4.6 mmol/L (3.3-5.1); Sodium 144 mmol/L (135-145); Total Protein 7.5 g/dL (6.5-8.0); Triglycerides 86 mg/dL (<150)
[2024-12-07 14:12] LABS: Folate > 20.0 ng/mL (> or = 4.0); Vitamin B12 587 pg/mL (200-900)
== END 2024-12-07 11:03 | disposition home or self-care (01) ==
LOC: HO.10HDL 11:02
PROVIDERS: Visit Provider Physician Assistant
DX: E78.5 Hyperlipidemia, unspecified (principal); E01.0 Iodine-deficiency related diffuse (endemic) goiter; E55.9 Vitamin D deficiency, unspecified
CPT/HCPCS: 36415; 80048; 80061; 80076; 82607; 82746; 84443; 85025

== ENCOUNTER 2025-01-19 11:26 | Outpatient (REF) | payer MEDICARE, SELFPAY ==
[2025-01-19 14:08] LABS: Cholesterol 157 mg/dL (<200); HDL Cholesterol 74 mg/dL (>40); Triglycerides 60 mg/dL (<150)
== END 2025-01-19 11:27 | disposition home or self-care (01) ==
LOC: HO.HMGCLDS 11:26
PROVIDERS: PCP Physician Assistant; Visit Provider Physician Assistant
DX: E78.5 Hyperlipidemia, unspecified (principal)
CPT/HCPCS: 36415; 80061